=== PATIENT | male | born 2000 | race American Indian/Alaskan Native ===

== ENCOUNTER 2019-07-14 02:17 | Emergency (ER) | payer MEDICAID, MEDICARE, OTHER ==
[2019-07-14 02:23] VITALS: BP 112/80
[2019-07-14] MEDS ORDERED: BACLOFEN 10 MG TAB PO STA (03:29)
[2019-07-14] MEDS ORDERED: diphenhydrAMINE 50 MG/ML VIAL IV ONE (03:29)
[2019-07-14] MEDS ORDERED: chlorproMAZINE 25 MG in SODIUM CHLORIDE 0.9% 50 ML IV ONE (03:29)
[2019-07-14 04:13] LABS: Alanine Aminotransferase 17 units/L (7-56); Albumin 4.5 g/dL (3.9-5); BUN/Creatinine Ratio 12; Blood Urea Nitrogen 13 mg/dL (9-20); Calcium 9.2 mg/dL (8.4-10.2); Hemolysis Index 17
--- NOTE | 2019-07-14 04:13 | XRay Report ---
CHEST 2 VIEWS INDICATION / CLINICAL INFORMATION: chest pain. COMPARISON: 12/09/13 FINDINGS: SUPPORT DEVICES: None. HEART / MEDIASTINUM: No significant abnormality. LUNGS / PLEURA: No significant pulmonary or pleural abnormality. No pneumothorax. ADDITIONAL FINDINGS: No significant additional findings. IMPRESSION: 1. No acute findings. No change. Signer Name: Shaheen John MD Signed: 07/14/2019 4:08 AM Workstation Name: [id number]
--- NOTE | 2019-07-14 06:39 | Emergency Department Report ---
ED General Adult HPI - General Chief complaint: Dyspnea/Respdistress Stated complaint: HICCUPS 48 HRS WITH CHEST PAIN Time Seen by Provider: 07/14/19 03:16 Source: patient Mode of arrival: Ambulatory Limitations: No Limitations - History of Present Illness Initial comments: 18-year-old -[place] male presents to the emergency department complaini ng of having hiccups off and on for the last 2 days. He states that he picked up to the point where he now has some chest discomfort, takes deep breaths twisters or moves certain directions. Reports no cough or congestion. No fevers, chills or sweats. No hemoptysis, hematemesis, no hematochezia. -: Gradual Location: chest Radiation: non-radiation Quality: aching, dull Consistency: constant Improves with: none Worsens with: none Associated Symptoms: chest pain. denies: confusion, cough, diaphoresis, fever/chills, headaches, loss of appetite, nausea/vomiting, rash, shortness of breath, syncope, weakness Treatments Prior to Arrival: none - Related Data Previous Rx's Medication Instructions Recorded Last Taken Type Ibuprofen [Motrin] 600 mg PO Q8H PRN #21 tablet 08/31/14 Unknown Rx Baclofen [Lioresal] 10 mg PO BID #20 tab 07/14/19 Unknown Rx Allergies Allergy/AdvReac Type Severity Reaction Status Date / Time Sulfa (Sulfonamide Allergy Rash Verified 12/08/13 22:27 Antibiotics) ED Review of Systems ROS: Stated complaint: HICCUPS 48 HRS WITH CHEST PAIN Other details as noted in HPI Comment: All other systems reviewed and negative ED Past Medical Hx - Past Medical History Previous Medical History?: Yes Hx Asthma: Yes - Surgical History Past Surgical History?: Yes Additional Surgical History: right rotator - Social History Smoking Status: Current Every Day Smoker Substance Use Type: None - Medications Home Medications: Home Medications Medication Instructions Recorded Confirmed Last Taken Type Ibuprofen [Motrin] 600 mg PO Q8H PRN #21 tablet 08/31/14 Unknown Rx Baclofen [Lioresal] 10 mg PO BID #20 tab 07/14/19 Unknown Rx ED Physical Exam - General Limitations: No Limitations General appearance: alert, in no apparent distress - Head Head exam: Present: atraumatic, normocephalic - Eye Eye exam: Present: normal appearance - ENT ENT exam: Present: mucous membranes moist - Neck Neck exam: Present: normal inspection - Respiratory Respiratory exam: Present: normal lung sounds bilaterally, chest wall tenderness. Absent: respiratory distress, rales, rhonchi, decreased breath sounds, prolonged expiratory - Cardiovascular Cardiovascular Exam: Present: regular rate, normal rhythm. Absent: systolic murmur, diastolic murmur, rubs, gallop - GI/Abdominal GI/Abdominal exam: Present: soft, normal bowel sounds. Absent: tenderness, guarding, rebound, hyperactive bowel sounds, hypoactive bowel sounds, organomegaly, mass, bruit - Rectal Rectal exam: Present: deferred - Extremities Exam Extremities exam: Present: normal inspection, full ROM - Back Exam Back exam: Present: normal inspection. Absent: CVA tenderness (R), CVA tenderne ss (L) - Neurological Exam Neurological exam: Present: alert, oriented X3, CN II-XII intact, motor sensory deficit - Psychiatric Psychiatric exam: Present: normal affect, normal mood - Skin Skin exam: Present: warm, dry, intact, normal color. Absent: rash ED Course Vital Signs 07/14/19 02:19 Temperature 97.7 F Pulse Rate 75 Respiratory 16 Rate Blood Pressure 112/80 O2 Sat by Pulse 99 Oximetry ED Medical Decision Making - Lab Data Result diagrams: 07/14/19 03:42 - Radiology Data Radiology results: report reviewed (chest x-ray normal) - Medical Decision Making 18-year-old with sickle cell last 2 days, refractory to take [id number] home remedies. Treated him in the emergency department with Thorazine and baclofen was yielded a complete resolution of his symptomatology.. This is no hemoptysis or hematemesis. Chest pain was reproducible on examination with range of motion and palpation appear to be a muscular skeletal origin and chest x-ray did not yielded any infectious processes or pneumothorax Critical care attestation.: If time is entered above; I have spent that time in minutes in the direct care of this critically ill patient, excluding procedure time. ED Disposition Clinical Impression: Hiccups Disposition: DC-01 TO HOME OR SELFCARE Is pt being admited?: No Does the pt Need Aspirin: No Condition: Stable Instructions: Hiccups (ED) Prescriptions: Baclofen [Lioresal] 10 mg PO BID #20 tab Referrals: OSCAR MEAD MD [Primary Care Provider] - 3-5 Days
== END 2019-07-14 06:57 | disposition home or self-care (01) ==
LOC: ED 02:17
DX: R06.6 Hiccough (principal); R07.89 Other chest pain; J45.909 Unspecified asthma, uncomplicated; F17.200 Nicotine dependence, unspecified, uncomplicated; Z88.2 Allergy status to sulfonamides
CPT/HCPCS: 36415; 71046; 80053; 96365; 96375; 99284; J1200; J3230

== ENCOUNTER 2019-08-27 17:33 | Emergency (ER) | payer BC ==
[2019-08-27 17:41] VITALS: BP 105/62
[2019-08-27] MEDS ORDERED: predniSONE 20 MG TAB PO ONE (20:13)
[2019-08-27] MEDS ORDERED: CYCLOBENZAPRINE 10 MG TAB PO ONE (20:13)
[2019-08-27] MEDS ORDERED: IBUPROFEN 600 MG TAB PO ONE (20:13)
--- NOTE | 2019-08-27 20:39 | XRay Report ---
RIGHT FOOT 3 VIEWS INDICATION / CLINICAL INFORMATION: MAIN: toe Pain. COMPARISON: None available. FINDINGS: No acute skeletal abnormality. No radiopaque foreign body. Signer Name: Alcides Daugherty MD Signed: 08/27/2019 8:35 PM Workstation Name: [id number]
--- NOTE | 2019-08-27 21:59 | Emergency Department Report ---
ED Extremity Problem HPI - General Chief complaint: Extremity Injury, Lower Stated complaint: LEFT FOOT PAIN Source: patient Mode of arrival: Ambulatory Limitations: No Limitations - History of Present Illness Initial comments: Patient is a 19-year-old -[place] male with no past medical history who presents to the ED with continued acute onset persistent severe nontraumatic right great toe pain and right foot pain for the last 2 weeks. Patient states that he is unable to perform an active range of motion of the right great toe because of severe right first MTP joint pain. Patient denies fall, traumatic injury, headache, chest pain, shortness of breath, fever, chills, nausea and vomiting. 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 MD Complaint: extremity pain (right foot, right great toe at 1st MTP joint), joint paint (right 1st MTP joint pain) -: Sudden, week(s) (2) Location: right, lower extremity (right foot and great toe pain), toe (right great toe joint) History of Same: No -: Yes arthralgia, No fever, No associated dyspnea, No associated chest pain Severity scale (0 -10): 4 Quality: aching, sharp Consistency: constant Improves with: nothing Worsens with: weight bearing, walking, exertion, palpation Associated Symptoms: denies other symptoms, arthralgias. denies: chest pain, shortness of breath, fever, myalgias, rash - Related Data Previous Rx's Medication Instructions Recorded Last Taken Type Ibuprofen [Motrin] 600 mg PO Q8H PRN #21 tablet 08/31/14 Unknown Rx Baclofen [Lioresal] 10 mg PO BID #20 tab 07/14/19 Unknown Rx Indomethacin [Indocin] 25 mg PO Q8H PRN #30 capsule 08/27/19 Unknown Rx predniSONE [Deltasone] 40 mg PO QDAY #10 tab 08/27/19 Unknown Rx traMADoL [Ultram] 50 mg PO Q6HR PRN #12 tablet 08/27/19 Unknown Rx Allergies Allergy/AdvReac Type Severity Reaction Status Date / Time Sulfa (Sulfonamide Allergy Rash Verified 12/08/13 22:27 Antibiotics) ED Review of Systems ROS: Stated complaint: LEFT FOOT PAIN Other details as noted in HPI Constitutional: denies: chills, fever Eyes: denies: eye pain, eye discharge, vision change ENT: denies: ear pain, throat pain Respiratory: denies: cough, shortness of breath, wheezing Cardiovascular: denies: chest pain, palpitations Endocrine: no symptoms reported Gastrointestinal: denies: abdominal pain, nausea, diarrhea Genitourinary: denies: urgency, dysuria Musculoskeletal: arthralgia (right great toe and foot), myalgia. denies: back pain, joint swelling Skin: denies: rash, lesions Neurological: denies: headache, weakness, paresthesias Psychiatric: denies: anxiety, depression Hematological/Lymphatic: denies: easy bleeding, easy bruising ED Past Medical Hx - Past Medical History Hx Asthma: Yes - Surgical History Additional Surgical History: right rotator - Social History Smoking Status: Never Smoker Substance Use Type: None - Medications Home Medications: Home Medications Medication Instructions Recorded Confirmed Last Taken Type Ibuprofen [Motrin] 600 mg PO Q8H PRN #21 tablet 08/31/14 Unknown Rx Baclofen [Lioresal] 10 mg PO BID #20 tab 07/14/19 Unknown Rx Indomethacin [Indocin] 25 mg PO Q8H PRN #30 capsule 08/27/19 Unknown Rx predniSONE [Deltasone] 40 mg PO QDAY #10 tab 08/27/19 Unknown Rx traMADoL [Ultram] 50 mg PO Q6HR PRN #12 tablet 08/27/19 Unknown Rx ED Physical Exam - General Limitations: No Limitations General appearance: alert, in no apparent distress - Head Head exam: Present: atraumatic, normocephalic, normal inspection - Eye Eye exam: Present: normal appearance, PERRL, EOMI Pupils: Present: normal accommodation - ENT ENT exam: Present: normal exam, normal orophraynx, mucous membranes moist, TM's normal bilaterally, normal external ear exam - Neck Neck exam: Present: normal inspection, full ROM - Respiratory Respiratory exam: Present: normal lung sounds bilaterally. Absent: respiratory distress, wheezes, rales, rhonchi, stridor, chest wall tenderness, accessory muscle use, decreased breath sounds, prolonged expiratory - Cardiovascular Cardiovascular Exam: Present: regular rate, normal rhythm, normal heart sounds. Absent: systolic murmur, diastolic murmur, rubs, gallop - GI/Abdominal GI/Abdominal exam: Present: soft, normal bowel sounds. Absent: tenderness, guarding, rebound, hyperactive bowel sounds, hypoactive bowel sounds, organomegaly, mass - Extremities Exam Extremities exam: Present: normal inspection, full ROM, tenderness (Palpable right foot and right great toe tenderness at the 1st MTP joint), normal capillary refill - Back Exam Back exam: Present: normal inspection, full ROM. Absent: muscle spasm, paraspinal tenderness - Neurological Exam Neurological exam: Present: alert, oriented X3, CN II-XII intact, normal gait, reflexes normal - Psychiatric Psychiatric exam: Present: normal affect, normal mood - Skin Skin exam: Present: warm, dry, intact, normal color. Absent: rash ED Course Vital Signs 08/27/19 17:37 Temperature 97.6 F Pulse Rate 68 Respiratory 15 Rate Blood Pressure 105/62 O2 Sat by Pulse 100 Oximetry ED Medical Decision Making - Radiology Data Radiology results: report reviewed, image reviewed Right foot x-ray shows no acute fractures or subluxations. - Medical Decision Making This is a 19-year-old male who presented to the ED with acute nontraumatic right foot pain worse in the first MTP joint and right great toe. In the ED, patient is alert and oriented 3 in destruction and distress. Right foot x-ray shows no acute fractures or subluxations. Patient was treated for pain in the ED and discharged home on pain medications and muscle relaxants. Patient symptoms are likely due to muscle strain, tendinitis, or gouty arthropathy. Patient was advised to follow-up with his primary care physician in 7-10 days for reevaluation or return to the ED immediately if symptoms get worse. - Differential Diagnosis Acute tendonitis; Muscle strain; Gouty arthropathy Critical care attestation.: If time is entered above; I have spent that time in minutes in the direct care of this critically ill patient, excluding procedure time. ED Disposition Clinical Impression: Tendinitis of right foot, Acute gouty arthropathy Muscle strain of right foot Qualifiers: Encounter type: initial encounter Qualified Code(s): S96.911A - Strain of unspecified muscle and tendon at ankle and foot level, right foot, initial encounter Disposition: - TO HOME OR SELFCARE Is pt being admited?: No Does the pt Need Aspirin: No Condition: Stable Instructions: Muscle Strain (ED), Tendinitis (ED), Acute Gouty Arthritis (ED) Additional Instructions: Take medications with food, drink plenty fluids and follow-up with your primary care physician in 7-10 days for reevaluation. Return to the ED immediately if symptoms get worse. Prescriptions: predniSONE [Deltasone] 40 mg PO QDAY #10 tab Indomethacin [Indocin] 25 mg PO Q8H PRN #30 capsule PRN Reason: Pain , Severe (7-10) traMADoL [Ultram] 50 mg PO Q6HR PRN #12 tablet PRN Reason: Pain Referrals: [facility] [Outside] - 3-5 Days Time of Disposition: 22:04 Print Language: TAJIK
== END 2019-08-27 22:20 | disposition home or self-care (01) ==
LOC: ED 17:33
DX: S96.911A Strain of unspecified muscle and tendon at ankle and foot level, right foot, initial encounter (principal); J45.909 Unspecified asthma, uncomplicated; Z88.2 Allergy status to sulfonamides; Z79.1 Long term (current) use of non-steroidal anti-inflammatories (NSAID); Z79.899 Other long term (current) drug therapy; W22.8XXA Striking against or struck by other objects, initial encounter; Y93.89 Activity, other specified; Y92.69 Other specified industrial and construction area as the place of occurrence of the external cause; Y99.8 Other external cause status
CPT/HCPCS: 73630; 99283; J7512

== ENCOUNTER 2019-11-25 16:12 | Emergency (ER) | payer SELFPAY ==
[2019-11-25 16:39] VITALS: BP 116/68
--- NOTE | 2019-11-25 18:31 | XRay Report ---
CHEST 2 VIEWS INDICATION / CLINICAL INFORMATION: PRODUCTIVE COUGH/CHEST PAIN. COMPARISON: Chest x-ray 07/14/2019 FINDINGS: SUPPORT DEVICES: None. HEART / MEDIASTINUM: No significant abnormality. LUNGS / PLEURA: No significant pulmonary or pleural abnormality. No pneumothorax. ADDITIONAL FINDINGS: No significant additional findings. IMPRESSION: 1. No acute findings. Signer Name: Brice Ngo MD Signed: 11/25/2019 6:26 PM Workstation Name: [id number]
[2019-11-25] MEDS ORDERED: predniSONE 20 MG TAB PO ONE (19:27)
[2019-11-25] MEDS ORDERED: BUTALB/ACETAMINOPHEN/CAFFEINE TAB PO ONE (19:27)
[2019-11-25] MEDS ORDERED: IBUPROFEN 600 MG TAB PO ONE (19:27)
--- NOTE | 2019-11-25 19:33 | Emergency Department Report ---
- General Chief Complaint: Upper Respiratory Infection Stated Complaint: LIGHT HEADED/VOMIT/[place] Source: patient Mode of arrival: Ambulatory Limitations: No Limitations - History of Present Illness Initial Comments: Patient is a 19-year-old -Luxembour[place] male with no past medical history who presents to the ED with complaint of acute onset persistent nasal and sinus congestion, frontal sinus pressure and headache, diffuse body aches and pains, persistent dry cough, lack of appetite, and pleuritic chest pain with cough for the last 1 week, worse in the last 2 days. Patient states that his girlfriend and his daughter also had similar symptoms prior to his symptom onset. Patient denies dizziness, syncope, chest pain, shortness of breath, change in vision, syncope, abdominal pain, nausea and vomiting, dysuria, urinary frequency and urgency or sore throat. MD Complaint: cough, rhinorrhea, nasal congestion, sinus pain, other (diffuse body aches) -: Sudden, week(s) (1) Severity: severe Severity scale (0 -10): 7 Quality: sharp, aching Consistency: constant Improves With: nothing Worsens With: nothing Context: sick contacts Associated Symptoms: denies other symptoms, fever, chills, myalgias, headache, rhinorrhea, nasal congestion, cough, chest pain. denies: sore throat, abdominal pain, nausea, vomiting, diarrhea, dysuria, rash, confusion, right sweats, weight loss, epistaxis, hoarseness, ear pain Treatments Prior to Arrival: none - Related Data Previous Rx's Medication Instructions Recorded Last Taken Type Baclofen [Lioresal] 10 mg PO BID #20 tab 07/14/19 Unknown Rx Indomethacin [Indocin] 25 mg PO Q8H PRN #30 capsule 08/27/19 Unknown Rx traMADoL [Ultram] 50 mg PO Q6HR PRN #12 tablet 08/27/19 Unknown Rx Amoxicillin [Trimox CAP] 500 mg PO Q8H #30 capsule 11/25/19 Unknown Rx Benzonatate [Tessalon Perles] 100 mg PO Q8HR #30 capsule 11/25/19 Unknown Rx Ibuprofen [Motrin 600 MG tab] 600 mg PO Q8H PRN #21 tablet 11/25/19 Unknown Rx predniSONE [Deltasone] 40 mg PO QDAY #10 tab 11/25/19 Unknown Rx Allergies Allergy/AdvReac Type Severity Reaction Status Date / Time Sulfa (Sulfonamide Allergy Rash Verified 12/08/13 22:27 Antibiotics) ED Review of Systems ROS: Stated complaint: LIGHT HEADED/VOMIT/[place] Other details as noted in HPI Constitutional: denies: chills, fever Eyes: denies: eye pain, eye discharge, vision change ENT: congestion. denies: ear pain, throat pain Respiratory: cough. denies: shortness of breath, wheezing Cardiovascular: chest pain (Pleuritic chest pain). denies: palpitations Endocrine: no symptoms reported Gastrointestinal: denies: abdominal pain, nausea, vomiting, diarrhea Genitourinary: denies: urgency, dysuria, frequency Musculoskeletal: arthralgia, myalgia. denies: back pain, joint swelling Skin: denies: rash, lesions Neurological: headache. denies: weakness, paresthesias Psychiatric: denies: anxiety, depression Hematological/Lymphatic: denies: easy bleeding, easy bruising ED Past Medical Hx - Past Medical History Previous Medical History?: Yes Hx Asthma: Yes - Surgical History Past Surgical History?: Yes Additional Surgical History: right rotator - Social History Smoking Status: Light Tobacco Smoker Substance Use Type: Alcohol - Medications Home Medications: Home Medications Medication Instructions Recorded Confirmed Last Taken Type Baclofen [Lioresal] 10 mg PO BID #20 tab 07/14/19 Unknown Rx Indomethacin [Indocin] 25 mg PO Q8H PRN #30 capsule 08/27/19 Unknown Rx traMADoL [Ultram] 50 mg PO Q6HR PRN #12 tablet 08/27/19 Unknown Rx Amoxicillin [Trimox CAP] 500 mg PO Q8H #30 capsule 11/25/19 Unknown Rx Benzonatate [Tessalon Perles] 100 mg PO Q8HR #30 capsule 11/25/19 Unknown Rx Ibuprofen [Motrin 600 MG tab] 600 mg PO Q8H PRN #21 tablet 11/25/19 Unknown Rx predniSONE [Deltasone] 40 mg PO QDAY #10 tab 11/25/19 Unknown Rx ED Physical Exam - General Limitations: No Limitations General appearance: alert, in no apparent distress - Head Head exam: Present: atraumatic, normocephalic, normal inspection - Eye Eye exam: Present: normal appearance, PERRL, EOMI Pupils: Present: normal accommodation - ENT ENT exam: Present: normal orophraynx, mucous membranes moist, TM's normal bilaterally, normal external ear exam, other (Palpable frontal sinus tenderness; grossly congested nasal passages) - Neck Neck exam: Present: normal inspection, full ROM. Absent: tenderness - Respiratory Respiratory exam: Present: normal lung sounds bilaterally. Absent: respiratory distress, wheezes, chest wall tenderness, accessory muscle use, decreased breath sounds, prolonged expiratory - Cardiovascular Cardiovascular Exam: Present: regular rate, normal rhythm, normal heart sounds. Absent: systolic murmur, diastolic murmur, rubs, gallop - GI/Abdominal GI/Abdominal exam: Present: soft, normal bowel sounds. Absent: tenderness, hyperactive bowel sounds, hypoactive bowel sounds - Extremities Exam Extremities exam: Present: normal inspection, full ROM, normal capillary refill - Back Exam Back exam: Present: normal inspection, full ROM, muscle spasm, paraspinal tenderness - Neurological Exam Neurological exam: Present: alert, oriented X3, CN II-XII intact, normal gait, reflexes normal - Psychiatric Psychiatric exam: Present: normal affect, normal mood - Skin Skin exam: Present: warm, dry, intact, normal color. Absent: rash ED Course Vital Signs 11/25/19 16:17 Temperature 98.7 F Pulse Rate 69 Respiratory 16 Rate Blood Pressure 116/68 O2 Sat by Pulse 97 Oximetry ED Medical Decision Making - Radiology Data Radiology results: report reviewed, image reviewed Chest x-ray shows no acute cardiopulmonary abnormalities or pneumonitis, pneumothorax or pleural effusion. - Medical Decision Making This is a 19-year-old male with no past medical history who presented to the ED with persistent nasal and sinus congestion, dry cough, pleuritic chest pain, frontal sinus pressure and headache, diffuse body aches and pains for 1 week. In the ED, patient is alert and oriented x3 and is not in any distress with normal vital signs. Chest x-ray shows no acute cardiopulmonary abnormalities, pneumonitis, pleural effusion or pneumothorax. Patient was treated for pain in the ED and on reevaluation, patient's pain is well controlled with medications. Patient was discharged home on medications and advised to follow-up with his primary care physician in 5 to 7 days for reevaluation or return to the ED immediately if symptoms get worse. - Differential Diagnosis FLU; Pneumonia; Sinusitis; URI Critical care attestation.: If time is entered above; I have spent that time in minutes in the direct care of this critically ill patient, excluding procedure time. ED Disposition Clinical Impression: Acute upper respiratory infection, Sinus headache Acute frontal sinusitis, unspecified Qualifiers: Recurrence: non-recurrent Qualified Code(s): J01.10 - Acute frontal sinusitis, unspecified Acute bronchitis Qualifiers: Bronchitis organism: other organism Qualified Code(s): J20.8 - Acute bronchitis due to other specified organisms Disposition: - TO HOME OR SELFCARE Is pt being admited?: No Does the pt Need Aspirin: No Condition: Stable Instructions: Acute Bronchitis (ED), Acute Bacterial Rhinosinusitis (ED), Upper Respiratory Infection (ED) Additional Instructions: Take medications with food, drink plenty fluids and follow-up with your primary care physician in 5 to 7 days for reevaluation. Return to the ED immediately if symptoms get worse. Prescriptions: predniSONE [Deltasone] 40 mg PO QDAY #10 tab Ibuprofen [Motrin 600 MG tab] 600 mg PO Q8H PRN #21 tablet PRN Reason: Pain Benzonatate [Tessalon Perles] 100 mg PO Q8HR #30 capsule Amoxicillin [Trimox CAP] 500 mg PO Q8H #30 capsule Referrals: [facility] [Outside] - 3-5 Days Forms: Work/School Release Form(ED) Time of Disposition: 19:30 Print Language: IVORIAN
== END 2019-11-25 19:47 | disposition home or self-care (01) ==
LOC: ED 16:12
DX: J06.9 Acute upper respiratory infection, unspecified (principal); J01.10 Acute frontal sinusitis, unspecified; J20.8 Acute bronchitis due to other specified organisms; F17.200 Nicotine dependence, unspecified, uncomplicated; Z98.890 Other specified postprocedural states; Z79.1 Long term (current) use of non-steroidal anti-inflammatories (NSAID); Z79.899 Other long term (current) drug therapy; Z88.2 Allergy status to sulfonamides
CPT/HCPCS: 71046; 99283; J7512

== ENCOUNTER 2019-12-15 13:18 | Emergency (ER) | payer OTHER ==
[2019-12-15 13:47] VITALS: BP 116/62
--- NOTE | 2019-12-15 13:50 | Emergency Department Report ---
Chief Complaint: Urogenital-Male Stated Complaint: PRIVATE AREA DISCOMFORT Time Seen by Provider: 12/15/19 13:46 - HPI History of Present Illness: This is a 19-year-old male nontoxic, well in appearance with no signs of distress presents to the ED for STD check. Patient stated that his partner called and said has STD. Patient stated he is asymptotic. Denies any penile discharge, testicular pain, or swelling. Patient denies any urinary symptoms. Patient denies any fever, chills, headache, nausea, vomiting, chest pain or shortness of breathe. denies any other symptoms or complaints. Allergies includes Sulfa. - Exam Vital Signs: Vital Signs 12/15/19 13:44 Temperature 97.6 F Pulse Rate 66 Respiratory 16 Rate Blood Pressure 116/62 O2 Sat by Pulse 100 Oximetry Physical Exam: Rao Lopez RN present during exam: no penile lesions, ulcers or discharge. normal physical exam. no urinary symptoms. MSE screening note: Focused history and physical exam performed. Due to findings the following was ordered: ED Medical Decision Making - Medical Decision Making This is a 19-year-old male that presents with nonmedical emergency complaint. Patient is just requested for a STD test. Patient denies any symptoms. I gave patient many different referrals to follow-up with STD concerns. Patient was instructed to Follow-up with a primary care doctor in 3-5 days or if symptoms worsen and continue return to emergency room as soon as possible. At time of discharge, the patient does not seem toxic or ill in appearance. No acute signs of distress noted. Patient agrees to discharge treatment plan of care. No further questions noted by the patient. ED Disposition for MSE Clinical Impression: Possible exposure to STD Disposition: Z-07 MED SCREENING EXAM-LEFT Is pt being admited?: No Does the pt Need Aspirin: No Condition: Stable Instructions: Safe Sex (ED) Additional Instructions: Follow-up with a primary care doctor in 3-5 days or if symptoms worsen and continue return to emergency room as soon as possible. Referrals: PRIMARY CARE, [Referring] - 3-5 Days WINSOME SOUTH MD [Staff Physician] - 3-5 Days
== END 2019-12-15 14:35 | disposition left against medical advice (07) ==
LOC: ED 13:18
DX: Z20.2 Contact with and (suspected) exposure to infections with a predominantly sexual mode of transmission (principal); Z88.2 Allergy status to sulfonamides
CPT/HCPCS: 99281

== ENCOUNTER 2020-06-11 00:27 | Emergency (ER) | payer SELFPAY ==
[2020-06-11 01:02] VITALS: BP 111/69
[2020-06-11 01:30] LABS: Basophils # (Auto) 0.1 K/mm3 (0.0-0.1); Basophils % (Auto) 1.1 % (0.0-1.8); Eosinophils # (Auto) 0.2 K/mm3 (0.0-0.4); Hematocrit 40.8 % (35.5-45.6); Hemoglobin 13.9 gm/dl (11.8-15.2); Lymphocytes # (Auto) 2.9 K/mm3 (1.2-5.4); Lymphocytes % (Auto) 36.1 % (13.4-35.0); Mean Corpuscular HGB Conc 34 % (32-34); Mean Corpuscular Volume 86 fl (84-94); Monocytes # (Auto) 0.7 K/mm3 (0.0-0.8); Monocytes % (Auto) 8.8 % (0.0-7.3); Platelet Count 206 K/mm3 (140-440); Red Blood Count 4.74 M/mm3 (3.65-5.03); Red Cell Distribution Width 13.3 % (13.2-15.2)
[2020-06-11 01:57] LABS: Alanine Aminotransferase 16 units/L (7-56); Albumin 4.7 g/dL (3.9-5); BUN/Creatinine Ratio 10; Blood Urea Nitrogen 11 mg/dL (9-20); Hemolysis Index 8
[2020-06-11 02:19] LABS: Bacteria,Urine 1+ /HPF (Negative); Bilirubin,Urine NEG (Negative); Blood,Urine NEG (Negative); Color,Urine Yellow (Yellow); Mucus,Urine FEW /HPF; Protein,Urine <15 mg/dL mg/dL (Negative)
--- NOTE | 2020-06-11 03:20 | Emergency Department Report ---
ED General Adult HPI - General Chief complaint: Abdominal Pain Stated complaint: RIGHT SIDE PAIN FOR 2 WEEKS Time Seen by Provider: 06/11/20 02:38 Source: patient Mode of arrival: Ambulatory Limitations: No Limitations - History of Present Illness Initial comments: 19-year-old F Chinese male presents emergency department complaining of atraumatic right chest/rib pain which he states gets worse when he takes a deep breath states that he does: Coughing spells which sometimes promotes the irritation but reports no hemoptysis no hematemesis no hematochezia no fever, chills, sweats no wheezing. There is no nausea vomiting no abdominal pain. No real palliative factors but is worse with certain movements palpation and deep breathing -: week(s) Radiation: non-radiation Consistency: constant Associated Symptoms: denies: loss of appetite, malaise, nausea/vomiting, syncope, weakness - Related Data Previous Rx's Medication Instructions Recorded Last Taken Type Baclofen [Lioresal] 10 mg PO BID #20 tab 07/14/19 Unknown Rx Indomethacin [Indocin] 25 mg PO Q8H PRN #30 capsule 08/27/19 Unknown Rx traMADoL [Ultram] 50 mg PO Q6HR PRN #12 tablet 08/27/19 Unknown Rx Amoxicillin [Trimox CAP] 500 mg PO Q8H #30 capsule 11/25/19 Unknown Rx Benzonatate [Tessalon Perles] 100 mg PO Q8HR #30 capsule 11/25/19 Unknown Rx Ibuprofen [Motrin 600 MG tab] 600 mg PO Q8H PRN #21 tablet 11/25/19 Unknown Rx predniSONE [Deltasone] 40 mg PO QDAY #10 tab 11/25/19 Unknown Rx Ketorolac [Toradol] 10 mg PO Q6H PRN #14 tablet 06/11/20 Unknown Rx Allergies Allergy/AdvReac Type Severity Reaction Status Date / Time Sulfa (Sulfonamide Allergy Rash Verified 12/08/13 22:27 Antibiotics) ED Review of Systems ROS: Stated complaint: RIGHT SIDE PAIN FOR 2 WEEKS Other details as noted in HPI Comment: All other systems reviewed and negative ED Past Medical Hx - Past Medical History Previous Medical History?: Yes Hx Asthma: Yes - Surgical History Past Surgical History?: Yes Additional Surgical History: Rotator cuff surgery, right. - Social History Smoking Status: Current Every Day Smoker Substance Use Type: None - Medications Home Medications: Home Medications Medication Instructions Recorded Confirmed Last Taken Type Baclofen [Lioresal] 10 mg PO BID #20 tab 07/14/19 Unknown Rx Indomethacin [Indocin] 25 mg PO Q8H PRN #30 capsule 08/27/19 Unknown Rx traMADoL [Ultram] 50 mg PO Q6HR PRN #12 tablet 08/27/19 Unknown Rx Amoxicillin [Trimox CAP] 500 mg PO Q8H #30 capsule 11/25/19 Unknown Rx Benzonatate [Tessalon Perles] 100 mg PO Q8HR #30 capsule 11/25/19 Unknown Rx Ibuprofen [Motrin 600 MG tab] 600 mg PO Q8H PRN #21 tablet 11/25/19 Unknown Rx predniSONE [Deltasone] 40 mg PO QDAY #10 tab 11/25/19 Unknown Rx Ketorolac [Toradol] 10 mg PO Q6H PRN #14 tablet 06/11/20 Unknown Rx ED Physical Exam - General Limitations: No Limitations General appearance: alert, in no apparent distress - Head Head exam: Present: atraumatic, normocephalic - Eye Eye exam: Present: normal appearance, PERRL, EOMI Pupils: Present: normal accommodation - ENT ENT exam: Present: normal exam, normal orophraynx, mucous membranes moist, TM's normal bilaterally - Neck Neck exam: Present: normal inspection, full ROM - Respiratory Respiratory exam: Present: normal lung sounds bilaterally. Absent: respiratory distress, wheezes, rales, chest wall tenderness, decreased breath sounds - Cardiovascular Cardiovascular Exam: Present: regular rate, normal rhythm. Absent: bradycardia, tachycardia, systolic murmur, diastolic murmur, rubs, gallop - GI/Abdominal GI/Abdominal exam: Present: soft, normal bowel sounds. Absent: tenderness, guarding - Rectal Rectal exam: Present: deferred - Extremities Exam Extremities exam: Present: normal inspection, normal capillary refill - Back Exam Back exam: Present: normal inspection. Absent: CVA tenderness (R), CVA tenderness (L) - Neurological Exam Neurological exam: Present: alert, oriented X3, CN II-XII intact, normal gait - Psychiatric Psychiatric exam: Present: normal affect, normal mood - Skin Skin exam: Present: warm, dry, intact, normal color. Absent: rash ED Course Vital Signs 06/11/20 06/11/20 00:58 03:30 Temperature 98.1 F Pulse Rate 62 57 L Respiratory 18 16 Rate Blood Pressure 111/69 O2 Sat by Pulse 100 100 Oximetry ED Medical Decision Making - Lab Data Result diagrams: 06/11/20 01:12 06/11/20 01:12 Critical care attestation.: If time is entered above; I have spent that time in minutes in the direct care of this critically ill patient, excluding procedure time. ED Disposition Clinical Impression: Musculoskeletal pain Disposition: DC- TO HOME OR SELFCARE Is pt being admited?: No Does the pt Need Aspirin: No Condition: Stable Instructions: Hip Bursitis (ED), Musculoskeletal Pain (ED), Ice Pack Applica tion (ED) Prescriptions: Ketorolac [Toradol] 10 mg PO Q6H PRN #14 tablet PRN Reason: Pain Referrals: PRIMARY CARE, [Primary Care Provider] - 3-5 Days [facility] [Provider Group] - 3-5 Days Forms: Work/School Release Form(ED)
== END 2020-06-11 03:30 | disposition home or self-care (01) ==
LOC: ED 00:27
DX: R07.89 Other chest pain (principal); J45.909 Unspecified asthma, uncomplicated; F17.200 Nicotine dependence, unspecified, uncomplicated
CPT/HCPCS: 36415; 80053; 81001; 85025; 87086; 99283